=== PATIENT | female | born 1985 | race Hispanic/Latino ===

== ENCOUNTER 2021-04-27 11:14 | Outpatient (CLI) | payer OTHER ==
[2021-04-28 00:05] LABS: SARS-CoV-2 PCR by NAA DETECTED (NotDetected)
== END 2021-04-27 11:15 | disposition home or self-care (01) ==
LOC: CSHLAB 11:14
PROVIDERS: ATTEND Family Medicine
DX: U07.1 COVID-19 (principal)
CPT/HCPCS: U0003; U0005